=== PATIENT | male | born 1950 | race Caucasian/White ===

== ENCOUNTER → 2018-01-01 | Outpatient (CLI) | payer OTHER ==
[~2018-01-01] MED LIST: ASA5UEC PO; COZAAR100 MG PO; HYDROCODON-ACE1 EAC7 PO; NORVASC 5 MG TAB5 MG PO; ZOCOR40 MG PO
== END ==
LOC: M.CT 14:09
DX: I10 Essential (primary) hypertension (principal); E78.5 Hyperlipidemia, unspecified; E78.6 Lipoprotein deficiency